=== PATIENT | female | born 1940 ===

== ENCOUNTER → 2022-04-24 08:12 | Outpatient (BNVA) | payer OTHER, SELFPAY | PROVIDERS: PCP Internal Medicine; Visit Provider Nurse Practitioner Family | DX: Z13.89 Encounter for screening for other disorder (principal) ==

== ENCOUNTER 2022-10-23 11:16 | Outpatient (AMB) | payer OTHER, SELFPAY ==
--- NOTE | 2022-10-23 11:26 | MHC.OFFVIS ---
Intake Vital Signs 10/23/22 11:27 Height 5 ft 5 in Weight 149 lb 6 oz BMI 24.9 BP 138/70 Blood Pressure Location Rt brachial Position Sitting Pulse 53 Pulse Source Pulse Oximeter Pulse Oximetry (%) 97 Oxygen Delivery Method Room Air Intake Visit Reasons: 6 mo f/u-Essential Tremor Intake Note: Patient presents for 6 month follow up tremors. Patient states tremors are getting worst, but I expected that to happen. Allergies No Known Allergies Allergy (Verified 10/23/22 11:32) Medication List - Last Reconciled 10/23/22 by LATIA Sotomayor alendronate 70 mg PO QWEEK atorvastatin 20 mg PO DAILY cholecalciferol (vitamin D3) 25 mcg PO DAILY coQ10 (ubiquinol) (CoQmax Ubiquinol) 100 mg PO DAILY mbxez-sv-5-mqf-ghf-mrqqquy-ast 1,000-230-60 mg (MegaRed [place]-3 Krill Oil) 1 cap PO BEDTIME ikentpcotigf-dhrbglio-vjyhpm 1 tab PO DAILY HPI HPI Comments History of Present Illness Details 81-yr-old female presents for f/u visit. Pt denies any significant interval medical changes. Pt reports her tremor is a bit worse. She is able to eat, but sometimes needs to support her right hand w/ her left. Her hands shake when golfing- which is embarrassing. She would like to consider retrying Propranolol- as her BP has been a bit more elevated. She has stopped using the [employer]- as the replacement bands were $750, and she did not find it helpful enough. PFSH Surgical History Hx of appendectomy Hx of knee surgery Family History Father Cancer Mother Tremor Diabetes Brother Tremor Diabetes Sister Tremor Social History Household Members: Friend(s) Alcohol intake: never Patient Tobacco Use Status: Never used Tobacco Review of Systems Const All systems reviewed & are unremarkable except as noted in HPI and below Physical Exam Vital Signs: Last Vital Signs Pulse 53 10/23/22 11:27 BP 138/70 10/23/22 11:27 Pulse Ox 97 10/23/22 11:27 Oxygen Delivery Method Room Air 10/23/22 11:27 BMI result Body Mass Index 24.9 Const General: cooperative and no acute distress Orientation/consciousness: patient oriented x3 HEENT Head: Yes normocephalic Resp Effort & Inspection: normal respiratory effort and able to speak in complete sentences Neuro Other: BUE R > L postural tremor, more so in wing beat position. No BUE tone. General: patient oriented x3, gait normal and CN's II-XI intact bilaterally Cognition (Neuro): normal cognition Motor exam (neuro): 5/5 motor strength present throughout Psych Appearance: grossly normal Mental Status: mental status grossly normal Affect: normal affect Attitude: cooperative Thought process: Normal thought process present Assessment & Plan Assessment & Plan (1) Essential tremor: Comment: BUE postural/kinetic tremor w/ mild asymmetry and mild RUE rest tremor. Tremor is alcohol-responsive. Strong family h/o ET. Code(s): G25.0 - Essential tremor Plan Retry Propranolol - start 5-10mg qd- may increase up to 10mg bid. Monitor for hypotension, HR < 50 (pt has apple watch and knows how to check). Pt encouraged to check [email or web address]- for useful tips and resources for ET. Previous tx trials- Zonisamide- not effective. Primidone- caused fogginess. Future considerations- Gabapentin, dopaminergic txs, FUS/DBS. f/u in 6 months or sooner prn Medications: New propranolol 10 mg PO BID 30 days 60 tabs 2RF Coding Level of Care Code Est Pt Level 3 (73183) Diagnoses Essential tremor G25.0
[2022-10-23 11:27] VITALS: BP 138/70; PULSE 53; O2SAT 97; BMI 24.9
== END 2022-10-23 12:16 | disposition home or self-care (01) ==
PROVIDERS: Visit Provider Nurse Practitioner Family
DX: G25.0 Essential tremor (principal)
CPT/HCPCS: 99213

== ENCOUNTER → 2022-10-23 11:16 | Outpatient (BNVA) | payer OTHER, SELFPAY | PROVIDERS: Visit Provider Nurse Practitioner Family ==

== ENCOUNTER 2023-04-23 10:57 | Outpatient (AMB) | payer OTHER, SELFPAY ==
--- NOTE | 2023-04-23 11:05 | A.OFFVIS_ITS ---
Intake Vital Signs 04/23/23 11:06 Height 5 ft 5 in Weight 155 lb BMI 25.8 Pulse 65 Pulse Source Pulse Oximeter Pulse Oximetry (%) 100 Oxygen Delivery Method Room Air Intake Visit Reasons: 6m follow up Essential Tremor-CONF Intake Note: Patient presents for 6 month follow up essential tremors. my tremors are getting worst Allergies No Known Allergies Allergy (Verified 04/23/23 11:08) Medication List - Last Reconciled 04/23/23 by LATIA Sotomayor alendronate 70 mg PO QWEEK atorvastatin 20 mg PO DAILY cholecalciferol (vitamin D3) 25 mcg PO DAILY coQ10 (ubiquinol) (CoQmax Ubiquinol) 100 mg PO DAILY wbzsm-vo-4-cct-sif-bdfsgwn-ast 1,000-230-60 mg (MegaRed [place]-3 Krill Oil) 1 cap PO BEDTIME zvddkliksdcd-zayzgrlw-ljkier 1 tab PO DAILY propranolol 10 mg PO BID 30 days HPI HPI Comments History of Present Illness Details 82-yr-old female presents for f/u visit. Pt denies any significant interval medical history changes. Pt is noticing increased tremors, which can interfere w/ activities and is embarrassing. Propranolol made her lightheaded. She is cusious about alternate tx's. PFSH Surgical History Hx of appendectomy Hx of knee surgery Family History Father Cancer Mother Tremor Diabetes Brother Tremor Diabetes Sister Tremor Social History Household Members: Friend(s) Alcohol intake: never Patient Tobacco Use Status: Never used Tobacco Review of Systems Const All systems reviewed & are unremarkable except as noted in HPI and below Physical Exam Vital Signs: Last Vital Signs Pulse 65 04/23/23 11:06 Pulse Ox 100 04/23/23 11:06 Oxygen Delivery Method Room Air 04/23/23 11:06 BMI result Body Mass Index 25.8 Const General: cooperative and no acute distress Resp Effort & Inspection: normal respiratory effort and able to speak in complete sentences Neuro Other: A&O x's 3 BUE R > L postural tremor. No BUE tone. Assessment & Plan Assessment & Plan (1) Essential tremor: Comment: BUE postural/kinetic tremor w/ mild asymmetry and mild RUE rest tremor. Tremor is alcohol-responsive. Strong family h/o ET. Code(s): G25.0 - Essential tremor Plan Stop Propranolol- caused bradycardia and lightheadedness. Trial Gabaoentin 100-300mg qhs. Check [email or web address]- for useful tips and resources for ET. Previous tx trials- Zonisamide- not effective. Primidone- caused fogginess. Propranolol- caused bradycardia and lightheadedness Future considerations- dopaminergic txs, FUS/DBS. f/u in 6 months or sooner prn Medications: New gabapentin 100 - 300 mg (1 - 3 x 100 mg) PO BEDTIME 90 caps 3RF 30 days Discontinued propranolol Discontinued Reason: Doctor's Order 10 mg PO BID 30 days 60 tabs 4RF Coding Level of Care Code Est Pt Level 3 (80437) Diagnoses Essential tremor G25.0
[2023-04-23 11:06] VITALS: PULSE 65; O2SAT 100; BMI 25.8
== END 2023-04-23 12:00 | disposition home or self-care (01) ==
PROVIDERS: PCP Internal Medicine; Visit Provider Nurse Practitioner Family
DX: G25.0 Essential tremor (principal)
CPT/HCPCS: 99213

== ENCOUNTER → 2023-04-23 10:57 | Outpatient (BNVA) | payer OTHER, SELFPAY | PROVIDERS: PCP Internal Medicine; Visit Provider Nurse Practitioner Family ==